=== PATIENT | female | born 1950 | race Caucasian/White ===

== ENCOUNTER 2019-03-30 11:02 | Emergency (ER) | payer MEDICARE ==
--- NOTE | 2019-03-30 12:16 | XRAY Report ---
Reason: fall Procedure Date: 03/30/2019 Accession Number: [id number] / [id number] Procedure: XR - Shoulder 3 View RT CPT Code: FULL RESULT: EXAM: RIGHT SHOULDER RADIOGRAPHY EXAM DATE: 03/30/2019 12:02 PM. CLINICAL HISTORY: Fall. COMPARISON: None. TECHNIQUE: 3 views. FINDINGS: Bones: There is a fracture of the osseous glenoid fossa. Joints: Anterior inferior dislocation of the glenohumeral articulation. The acromioclavicular interval may also be disrupted, limited evaluation due to positioning. Soft tissues: The visualized hemithorax is unremarkable. No soft tissue swelling. IMPRESSION: Glenohumeral dislocation with fracture at the glenoid fossa. Possible AC joint injury. RADIA The call report notification system was initiated by Dr. Fam Mora at 12:15 PM on 03/30/2019. The above call report findings were discussed with triage nurse Autumn by Dr. Fam Mora at 12:18 PM on 03/30/2019.
--- NOTE | 2019-03-30 13:55 | ED Physician Documentation ---
PD HPI UPPER EXT INJURY - Stated complaint Stated Complaint: RT SHOULDER INJ - Chief complaint Chief Complaint: Ext Problem - History obtained from History obtained from: Patient - History of Present Illness Location: Right, Shoulder Type of injury: Fall (she says slipped and fell, landed onto right shoulder. With pain on ROM. She hoped it was sprained and would improve, but continues to be unable to move shoulder without pain.) Where injury occurred: Home Timing - onset: How many days ago (2) Timing - duration: Days (2) Timing - details: Abrupt onset Improved by: Rest, Immobilization Worsened by: Moving, Palpating Associated symptoms: Numbness (little finger and ring finger since fall.). No: Weakness Contributing factors: No: Anticoagulated Similar symptoms before: Has not had sx before Recently seen: Not recently seen Review of Systems Constitutional: denies: Fever Nose: denies: Rhinorrhea / runny nose, Congestion Throat: denies: Sore throat Cardiac: denies: Chest pain / pressure Respiratory: denies: Cough GI: denies: Abdominal Pain, Nausea, Vomiting : denies: Hematuria Musculoskeletal: reports: Joint pain (just right shoulder). denies: Neck pain, Back pain PD PAST MEDICAL HISTORY - Past Medical History Cardiovascular: [place] Psych: Depression, Anxiety - Past Surgical History Past Surgical History: Yes /MANAGER SIGN: Hysterectomy HEENT: Tonsil/Adenoidectomy - Present Medications Home Medications: Ambulatory Orders Medication Instructions Recorded Confirmed Acyclovir 200 mg PO TID 11/30/14 02/15/15 Aspirin [Aspir-Low] 81 mg PO DAILY 11/30/14 02/15/15 Atorvastatin [Lipitor] 80 mg PO DAILY 11/30/14 02/15/15 Carvedilol 12.5 mg PO BID 11/30/14 02/15/15 Cholecalciferol (Vitamin D3) 1,000 unit PO DAILY 11/30/14 02/15/15 [Vitamin D3] Garlic 600 mg PO DAILY 11/30/14 02/15/15 Neha 550 mg PO TID 11/30/14 02/15/15 Lisinopril 10 mg PO DAILY 11/30/14 02/15/15 Multivitamin [Multi Vitamin Daily] 1 each PO DAILY 11/30/14 02/15/15 [place]-3 Fatty Acids/Fish Oil [Fish 1,200 mg PO DAILY 11/30/14 02/15/15 Oil 1,200 mg Softgel] Omeprazole 1 tab PO DAILY 11/30/14 02/15/15 Sertraline [Zoloft] 50 mg PO DAILY 11/30/14 02/15/15 Calcium Carb, Cit/Magnesium Ox 1,200 mg PO DAILY 02/15/15 02/15/15 [Calmag Thins Tablet] Hydrocodone/Acetaminophen [[place] 1 each PO Q6H PRN #15 tablet 03/30/19 5-325 Tablet] Naproxen 375 mg PO BID #20 tablet 03/30/19 - Allergies Allergies/Adverse Reactions: Allergies Allergy/AdvReac Type Severity Reaction Status Date / Time codeine [Codeine] Allergy Nausea Verified 03/30/19 11:27 tetracycline [Tetracycline] Allergy Rash Verified 03/30/19 11:27 - Social History Does the pt smoke?: Yes Smoking Status: Current every day smoker Does the pt drink ETOH?: Yes Does the pt have substance abuse?: Yes PD ED PE NORMAL - Vitals Vital signs reviewed: Yes - General General: Alert and oriented X 3, Well developed/nourished, Other (holding right shoulder guardedly. ) - HEENT HEENT: Atraumatic - Neck Neck: Supple, no meningeal sign, No bony TTP, No adenopathy - Cardiac Cardiac: RRR, No murmur - Respiratory Respiratory: Clear bilaterally, Other (no chestwall tenderness) - Abdomen Abdomen: Soft, Non tender - Back Back: No spinal TTP - Derm Derm: Normal color, Warm and dry - Extremities Extremities: Other (right shoulder with hollow defect below AC c/w dislocation. Less sensation to touch in little/ring fingers. No tenderness/deformity of the elbow. Wrist not tender. ) - Neuro Neuro: Alert and oriented X 3, No motor deficit, Normal speech Results - Vitals Vitals: Vital Signs - 24 hr 03/30/19 03/30/19 03/30/19 11:25 15:14 15:22 Temperature 369 C H Heart Rate 61 81 84 Respiratory 20 14 14 Rate Blood Pressure 126/97 H 155/94 H 155/94 H O2 Saturation 96 100 98 03/30/19 03/30/19 03/30/19 15:27 15:40 16:49 Temperature Heart Rate 88 97 93 Respiratory 17 15 18 Rate Blood Pressure 189/105 H 144/109 H O2 Saturation 98 94 03/30/19 03/30/19 03/30/19 16:51 17:00 18:10 Temperature Heart Rate 99 92 72 Respiratory 14 14 14 Rate Blood Pressure 115/92 H 115/90 H 110/70 O2 Saturation 99 97 98 Oxygen O2 Source Room air - Rads (name of study) right shoulder Radiology: Prelim report reviewed (dislocation shoulder, and glenoid fracture), EMP read contemporaneously, See rad report post reduction Radiology: Prelim report reviewed, EMP read contemporaneously (improved location), See rad report Procedures - Reduction Body part reduced: Right, Shoulder Fracture or dislocation: Fracture dislocation Anesthesia: Conscious sedation Shoulder reduction technique: [place] / ext rotation, Traction - counter tract Reduction aftercare: Unable to reduce (consulted Ortho, who will come and assist procedure.) - Procedural sedation Sedation prep: Informed consent, Time out completed, PE performed, AHA 2 - mild disease, IV O2 monitor, ET CO2 monitor, RT present Sedation medications: morphine, propofol Patient status during sedation: Responds to tactile, Vitals remained stable, Maintained airway, Recovered uneventfully Sedation recovery: Back to baseline PD MEDICAL DECISION MAKING - ED course Complexity details: reviewed results, re-evaluated patient (improved with reduction. No other apparent injury on re-exam. ), considered differential (Shoulder dislocation with glenoid fracture. Attempted reduction with sedation and I could not get it. Called Ortho, who came and did reduction while I did sedation. ), d/w patient Departure - Departure Disposition: 01 Home, Self Care Clinical Impression: Accidental fall Qualifiers: Encounter type: initial encounter Qualified Code(s): W19.XXXA - Unspecified fall, initial encounter Shoulder dislocation Qualifiers: Encounter type: initial encounter Laterality: right Qualified Code(s): S43.004A - Unspecified dislocation of right shoulder joint, initial encounter Glenoid fracture of shoulder Qualifiers: Encounter type: initial encounter Fracture type: closed Laterality: right Qualified Code(s): S42.141A - Displaced fracture of glenoid cavity of scapula, right shoulder, initial encounter for closed fracture Condition: Stable Record reviewed to determine appropriate education?: Yes Instructions: ED Dislocation Shoulder Redu, ED Fx Shoulder Follow-Up: Estevan Brar MD [Primary Care Provider] - Ilia Wills MD [Provider Admit Priv/Credential] - Prescriptions: Hydrocodone/Acetaminophen [[place] 5-325 Tablet] 1 each PO Q6H PRN #15 tablet PRN Reason: Pain Naproxen 375 mg PO BID #20 tablet Comments: Keep the sling on most of the time. You can have it off briefly for cleansing and changing clothes. No overhead reaching, push pole, lifting with the right arm. Use naproxen and anti-inflammatory twice daily with food. Add Tylenol or hydrocodone if needed for pain. Follow-up with Dr. Pleitez, orthopedics, in about a week, call tomorrow for an appointment. At that point he can reassess how your shoulder is doing regarding the ligaments and muscles and they want to follow the fracture to see if it healing well enough. Discharge Date/Time: 03/30/19 18:18
[2019-03-30] MEDS ORDERED: SODIUM CHLORIDE 0.9% 1,000 ML IV ONE (14:10)
[2019-03-30] MEDS ORDERED: diazePAM INJ 5 MG/ML SYRINGE IVP STA (14:10)
[2019-03-30] MEDS ORDERED: MORPHINE 2 MG/ML CARPUJECT IVP STA ×3 (14:10→16:13)
[2019-03-30] MEDS ORDERED: KETOROLAC 15 MG/ML VIAL IVP STA (14:10)
[2019-03-30] MEDS ORDERED: ONDANSETRON 4 MG/2 ML VIAL IVP STA (14:36)
[2019-03-30] MEDS ORDERED: PROPOFOL 200 MG/20 ML VIAL IVP STA ×2 (14:48→16:13)
--- NOTE | 2019-03-30 17:45 | XRAY Report ---
Reason: post procedure Procedure Date: 03/30/2019 Accession Number: [id number] / [id number] Procedure: XR - Shoulder 2 View RT CPT Code: FULL RESULT: EXAM: RIGHT SHOULDER RADIOGRAPHY EXAM DATE: 03/30/2019 05:17 PM. CLINICAL HISTORY: Shoulder dislocation. Post reduction. COMPARISON: SHOULDER 2 VIEW RT 03/30/2019 4:39 PM. TECHNIQUE: 2 views. FINDINGS: Bones: No acute fracture is demonstrated. Joints: There is satisfactory alignment at glenohumeral joint post reduction. Soft tissues: No abnormal soft tissue calcification. IMPRESSION: Satisfactory right shoulder alignment post reduction. [facility]
--- NOTE | 2019-03-30 17:47 | XRAY Report ---
Reason: post reduction Procedure Date: 03/30/2019 Accession Number: [id number] / [id number] Procedure: XR - Shoulder 2 View RT CPT Code: FULL RESULT: EXAM: RIGHT SHOULDER RADIOGRAPHY EXAM DATE: 03/30/2019 04:52 PM. CLINICAL HISTORY: Post reduction. COMPARISON: SHOULDER 3 VIEW RT 03/30/2019 11:52 AM. TECHNIQUE: 1 views. FINDINGS: Bones: There is lucency of the superior lateral proximal right humerus suspicious for Hill-Sachs deformity. Joints: There is anterior dislocation of the right humerus at the glenohumeral joint. Soft tissues: Negative for right pneumothorax. IMPRESSION: Anterior dislocation of the right shoulder. Probable Hill-Sachs deformity. RAD[facility]
[2019-03-30 18:19] VITALS: BP 110/70
--- NOTE | 2019-04-02 17:51 | CONSULTATION NOTE ---
DATE OF SERVICE: 03/30/2019 Physician: Ilia Wills MD CONSULTATION REQUESTED BY: Neville Bailey MD CONSULTING PHYSICIAN: Ilia Wills MD CHIEF COMPLAINT: I was asked to evaluate the patient for right shoulder glenohumeral dislocation and possible glenoid fracture, irreducible by initial attempt at closed reduction. HISTORY OF PRESENT ILLNESS: The patient is a 68-year-old female who sustained a fall 2-3 days ago, h ad an injury and pain on the right shoulder and was found to have a glenohumeral dislocation, failed reduction by the emergency medicine team. Orthopedic consultation was sought. The patient denies other traumatic complaints at this time, reports only right glenohumeral pain. De nies other significant right upper extremity complaints. She demonstrates radial, median, ulnar, mus culocutaneous motor and sensory function. She has weak firing of the deltoid, but has light toe-touc h sensation in the axillary distribution. Elbow, wrist and hand are generally unremarkable. She has palpable radial and ulnar pulses. ASSESSMENT AND PLAN: The patient is a 68-year-old female with approximately 2-3 day old anterior inf erior glenohumeral dislocation. We discussed closed reduction under conscious sedation. Please see dictation under separate cover. Risks, benefits and alternatives were reviewed. She verbalized unde rstanding of the above after having questions answered, verbalized wish to proceed with closed reduct ion. The patient was given post-reduction instructions. She will followup in the Orthopedic Clinic. She was given followup instructions. Potential need for additional treatment reviewed potentially for fu rther evaluation with imaging reviewed. Her questions answered to her understanding and satisfaction. IMAGING: The patient had right shoulder x-rays showing anterior inferior glenohumeral dislocation an d possible glenoid fracture, possible Hill-Sachs injury. TD: 04/02/2019 17:00
--- NOTE | 2019-04-02 18:24 | OPERATIVE REPORT ---
DATE OF SERVICE: 03/30/2019 Physician: Ilia Wills MD SURGEON: Ilia Wills MD PREOPERATIVE DIAGNOSIS: Right glenohumeral dislocation. POSTOPERATIVE DIAGNOSIS: Right glenohumeral dislocation. ANESTHESIA: Conscious sedation per Dr. Neville Bailey, Emergency Medicine Department. PROCEDURE: Right glenohumeral reduction under conscious sedation. ADDITIONAL DIAGNOSES: Possible glenoid and Hill-Sachs injuries. HISTORY OF PRESENT ILLNESS AND INDICATIONS: Please see consultation dictated under separate cover. In brief, patient is a 68-year-old female who sustained a fall and injury to her right shoulder. 2-3 days ago. She had pain, presented to the emergency department and had multiple reduction attempts p er Dr. Bailey. Patient was unable to have her shoulder reduced under conscious sedation and orthope dic consultation was sought. Patient was indicated for right shoulder closed reduction under conscio us sedation. We talked about risks, benefits, and alternatives. We talked about the potential risks including, but not limited to further injury, iatrogenic injury, worsening of her condition, failure to "cure" patient's problem, need for additional procedures, nerve or blood vessel injury, whether i t be partial, complete, permanent, or temporary. Talked about potential need for additional treatmen t of her shoulder as well as the fact that there are other risks not addressed here. She verbalized understanding of the above, questions answered, verbalized the wish to proceed. PROCEDURE NOTE: After conscious sedation is administered, following site identification of the right shoulder, patient has traction countertraction technique with a combination of good relaxation and a lso manual pressure on the humeral head, a palpable movement and reduction is noted. The range of mo tion of the glenohumeral joint improves and is noted to have appropriate anterior, posterior, inferio r translation approximately 2+. Post-reduction films are ordered. Patient was placed in a sling. Patient tolerated the procedure well. Patient is advised to follow up in the orthopedic clinic in 7 to 10 days for further evaluation. Postprocedure instructions given. TD: 04/02/2019 16:54
== END 2019-03-30 18:18 | disposition home or self-care (01) ==
LOC: ED 11:02
DX: S43.014A Anterior dislocation of right humerus, initial encounter (principal); S42.141A Displaced fracture of glenoid cavity of scapula, right shoulder, initial encounter for closed fracture; W01.0XXA Fall on same level from slipping, tripping and stumbling without subsequent striking against object, initial encounter; Y92.009 Unspecified place in unspecified non-institutional (private) residence as the place of occurrence of the external cause; F17.200 Nicotine dependence, unspecified, uncomplicated; Z79.82 Long term (current) use of aspirin
CPT/HCPCS: 23650; 94770; 96374; 96375; 96376; 99152; 99283; 99284

== ENCOUNTER 2019-04-20 07:58 | Outpatient (CLI) | payer MEDICARE ==
--- NOTE | 2019-04-20 14:08 | MRI Report ---
Reason: UNSPECIFIED DISLOCATION OF RIGHT SHOULDER JOINT,AGUILA Procedure Date: 04/20/2019 Accession Number: [id number] / [id number] Procedure: MRI - Shoulder RT W/O CPT Code: FULL RESULT: EXAM: RIGHT SHOULDER MRI WITHOUT CONTRAST EXAM DATE: 04/20/2019 09:13 AM. CLINICAL HISTORY: Unspecified dislocation of right shoulder joint. Shoulder pain. COMPARISON: None. TECHNIQUE: Multiplanar, multisequence T1-weighted and fluid-sensitive sequences of the shoulder without contrast. Other: Motion artifact. FINDINGS: Acromioclavicular Region: The acromion is type II. The acromioclavicular joint is unremarkable. The coracoacromial and coracoclavicular ligaments are intact. Small amount of bursal fluid is present. Glenohumeral Region: Superior subluxation of the humeral head with respect to the bony glenoid, there is pseudoarticulation with the undersurface of the acromion. Small joint effusion. Broad areas of grade III chondromalacia on both sides of the glenohumeral joint. The articular cartilage is unremarkable. The glenohumeral ligaments and joint capsule are unremarkable. Bone Marrow: No fracture, marrow edema or bone lesions. Labrum: Labrum is difficult to visualize because of motion, however, no discrete labral tears are noted. Musculature/Rotator Cuff: Longstanding full-thickness tears and proximal retraction of the supraspinatus, infraspinatus and subscapularis portions of rotator cuff. Teres minor attachment is tenuous but present. Extensive fatty atrophy of the subscapularis, supraspinatus and infraspinatus portions of the cuff. Biceps Tendon: Long head biceps tendon is not seen and is presumed torn and retracted distally. Other: None. IMPRESSION: 1. Type II unipartite undersurface osseous acromion shape. Small amount of bursal fluid is present. AC joint is unremarkable. 2. Superior subluxation of the humeral head with respect to the bony glenoid, pseudoarticulation with the undersurface of the acromion. Small joint effusion, broad areas of grade III chondromalacia on both sides of the joint. 3. Chronic longstanding full-thickness tears and proximal retraction with fatty atrophy involving the supraspinatus, infraspinatus and subscapularis portions of the cuff. Teres minor attachment is tenuous, there is edematous change in the muscle bundle. 4. Long head of biceps tendon is not seen and is presumed torn and retracted distally. RADIA
== END 2019-04-20 07:59 | disposition home or self-care (01) ==
LOC: DI 07:58
PROVIDERS: ATTEND Orthopaedic Surgery Sports Medicine
DX: S43.001A Unspecified subluxation of right shoulder joint, initial encounter (principal); M75.101 Unspecified rotator cuff tear or rupture of right shoulder, not specified as traumatic; M94.211 Chondromalacia, right shoulder

== ENCOUNTER 2020-08-03 12:14 | Outpatient (CLI) | payer MEDICARE ==
[2020-08-03 15:46] LABS: BASOPHILS % (AUTO) 0.5 %; EOSINOPHILS % (AUTO) 1.6 %; HGB - HEMOGLOBIN 13.4 g/dL (12.0-16.0); MEAN CORPUSCULAR HEMOGLOBIN 35.5 pg (27.0-31.0); MEAN CORPUSCULAR HGB CONC 33.8 g/dL (32.0-36.0); MEAN PLATELET VOLUME 13.2 fL (7.9-10.8); MONOCYTES % (AUTO) 8.9 %; NEUTROPHILS % (AUTO) 59.8 %; PLT - PLATELET COUNT 130 10^3/uL (130-450); RED BLOOD COUNT 3.77 10^6/uL (4.20-5.40); WHITE BLOOD COUNT 5.6 x10^3/uL (4.8-10.8)
[2020-08-03 15:49] LABS: ABNORMAL LYMPHS % (MANUAL) 0 %; BAND NEUTROPHILS % (MANUAL) 0 %
[2020-08-03 16:00] LABS: LYMPHOCYTES # (MANUAL) 1.3 10^3/uL (1.5-3.5); LYMPHOCYTES % (MANUAL) 23 %; MONOCYTES # (MANUAL) 0.3 10^3/uL (0.0-1.0)
[2020-08-03 16:01] LABS: DIFFERENTIAL COMMENT MANUAL DIFFERENTIAL; PLATELET ESTIMATE, MANUAL NORMAL (130-450,000) (NORMAL); PLATELET MORPHOLOGY NORMAL APPEARANCE (NORMAL); RBC MORPHOLOGY (MULTIPLE) 1+ MACROCYTOSIS (NORMAL)
== END 2020-08-03 12:15 | disposition home or self-care (01) ==
LOC: LAB.S 12:14
PROVIDERS: ATTEND Nurse Practitioner Family
DX: D75.89 Other specified diseases of blood and blood-forming organs (principal)
CPT/HCPCS: 36415; 85025

== ENCOUNTER 2020-08-26 08:00 | Outpatient (CLI) | payer MEDICARE ==
[2020-08-26 17:50] LABS: INR 4.4 (0.8-1.2); PT - PROTHROMBIN TIME 44.3 secs (9.9-12.6)
== END 2020-08-26 23:59 | disposition home or self-care (01) ==
LOC: LAB.S 08:00
PROVIDERS: ATTEND Family Medicine
DX: I48.91 Unspecified atrial fibrillation (principal)
CPT/HCPCS: 36415; 85610

== ENCOUNTER 2020-09-02 13:17 | Outpatient (CLI) | payer MEDICARE | END 2020-09-02 13:18 | disposition home or self-care (01) | LOC: LAB.S 13:17 | PROVIDERS: ATTEND Family Medicine | DX: I48.91 Unspecified atrial fibrillation (principal) | CPT/HCPCS: 85610 ==

== ENCOUNTER 2020-09-19 12:51 | Outpatient (CLI) | payer MEDICARE | END 2020-09-19 12:52 | disposition home or self-care (01) | LOC: LAB.S 12:51 | PROVIDERS: ATTEND Family Medicine | DX: I48.91 Unspecified atrial fibrillation (principal) | CPT/HCPCS: 85610 ==

== ENCOUNTER 2020-09-28 13:21 | Outpatient (CLI) | payer MEDICARE | END 2020-09-28 13:22 | disposition home or self-care (01) | LOC: LAB.S 13:21 | PROVIDERS: ATTEND Family Medicine | DX: Z53.9 Procedure and treatment not carried out, unspecified reason (principal) ==

== ENCOUNTER 2020-09-30 11:56 | Outpatient (CLI) | payer MEDICARE | END 2020-09-30 11:57 | disposition home or self-care (01) | LOC: LAB.S 11:56 | PROVIDERS: ATTEND Family Medicine | DX: I48.91 Unspecified atrial fibrillation (principal) | CPT/HCPCS: 85610 ==

== ENCOUNTER 2022-10-11 07:07 | Day surgery (SDC) | payer MEDICARE ==
[2022-10-11] MEDS ORDERED: LACTATED RINGERS 1,000 ML IV ONE ×2 (07:09→08:36)
[2022-10-11] MEDS ORDERED: KETOROLAC 0.45% OPHTH DROPS ONE (07:10)
[2022-10-11] MEDS ORDERED: PROPARACAINE 0.5% OPHTH DROPS 15 ML ONE (07:10)
[2022-10-11] MEDS ORDERED: CYCLOPENTOLATE 1% OPHTH DROPS 2 ML ONE (07:10)
[2022-10-11] MEDS ORDERED: PHENYLEPHRINE 2.5% OPHTH 2 ML DROPS ONE (07:10)
[2022-10-11] MEDS ORDERED: MIDAZOLAM 2 MG/2 ML VIAL ONE (08:16)
[2022-10-11] MEDS ORDERED: fentaNYL 100 MCG/2 ML VIAL ONE (08:16)
--- NOTE | 2022-10-11 08:22 | ANESTHESIA ---
Pre-Anesthesia VS, & Labs - Diagnosis L cataract - Procedure L PhacoIol Vital Signs: Temp Pulse Resp BP Pulse Ox O2 Flow Rate 36.9 C 88 18 125/82 H 98 0 10/11/22 07:26 10/11/22 07:26 10/11/22 07:26 10/11/22 07:26 10/11/22 07:26 10/11/22 07:26 Height: 5 ft 4 in Weight (kg): 85.5 kg Body Mass Index: 32.3 BMI Classification: Obese - NPO >8 hours - Is Patient ?: No Home Medications and Allergies Home Medications: Ambulatory Orders Mecobalamin [B12 Active] 1,000 mcg PO DAILY 09/26/22 Warfarin [Coumadin] 5 mg PO 1400 09/26/22 Atorvastatin [Lipitor] 80 mg PO DAILY 11/30/14 Carvedilol 6.25 mg PO BID 11/30/14 Cholecalciferol (Vitamin D3) [Vitamin D3] 1,000 unit PO DAILY 11/30/14 Multivitamin [Multi Vitamin Daily] 1 each PO DAILY 11/30/14 [place]-3 Fatty Acids/Fish Oil [Fish Oil 1,200 mg Softgel] 1,200 mg PO DAILY 11/30/14 Omeprazole 1 tab PO DAILY 11/30/14 Sertraline [Zoloft] 75 mg PO DAILY 11/30/14 Calcium Carb, Cit/Magnesium Ox [Calmag Thins Tablet] 1,200 mg PO DAILY 02/15/15 Mecobalamin [B12 Active] 1,000 mcg PO DAILY 09/26/22 Warfarin [Coumadin] 5 mg PO 1400 09/26/22 Allergies/Adverse Reactions: Allergies Allergy/AdvReac Type Severity Reaction Status Date / Time codeine [Codeine] Allergy Nausea Verified 03/30/19 11:27 tetracycline [Tetracycline] Allergy Rash Verified 03/30/19 11:27 Anes History & Medical History - Anesthetic History Anesthesia Complications: reports: No previous complications Family history of Anesthesia Complications: Denies Family history of Malignant Hyperthermia: Denies - Medical History Cardiovascular: reports: Hypertension, High cholesterol, [place], Atrial fibrillation Pulmonary: reports: None Gastrointestinal: reports: None Urinary: reports: None Musculoskeletal: reports: Other Endocrine/Autoimmune: reports: None Skin: reports: None Smoking Status: Current every day smoker Psychosocial: reports: Alcohol (PT REPORTS SHE DRANK 3 GLASSES OF WINE AND USED CANNABIS LAST NIGHT), Cannabis - Surgical History General: reports: Colonoscopy Eyes Ears Nose Throat (EENT): reports: Tonsil/Adenoidectomy Gynecologic: reports: Hysterectomy Exam General: Alert, Oriented x3 Dental: Dentures full Upper, Dentures full Lower Mouth Openin Fingerbreadth Neck Mobility: Normal Mallampati classification: I Thyromental Distance: 4-6 cm Respiratory: Lungs clear Cardiovascular: Regular rate Plan Anesthesia Type: MAC Consent for Procedure(s) Verified and Reviewed: Yes Code Status: Attempt Resuscitation ASA classification: 2-Mild systemic disease Is this case an emergency?: No
[2022-10-11] MEDS ORDERED: TIMOLOL 0.5% OPHTH DROPS OPTH ONE (08:24)
[2022-10-11] MEDS ORDERED: EPINEPHrine 1 MG/ML AMP IR ONE (08:24)
[2022-10-11] MEDS ORDERED: BRIMONIDINE 0.2% OPHTH DROPS 5 ML OPTH ONE (08:24)
[2022-10-11] MEDS ORDERED: BSS/LIDOCAINE/EPINEPHRINE 1 ML SYRINGE IO ONE (08:25)
[2022-10-11] MEDS ORDERED: PROPARACAINE 0.5% OPHTH DROPS 15 ML EACHEYE ONE (08:25)
[2022-10-11] MEDS ORDERED: TRIAMCIN/MOXIFLOX OPHTHALMIC 0.6 ML VIAL IO ONE ×2 (08:25→11:06)
[2022-10-11] MEDS ORDERED: VANCOMYCIN OPHTH (TOPICAL) 10 MG/ML SYRINGE TOP ONE (08:26)
--- NOTE | 2022-10-11 08:42 | OPERATIVE REPORT ---
Operative Report - Other Other Information/Narrative: Date of Surgery: 10/11/22 Preop Dx: Visually significant cataract left eye. This was the first cataract surgery. Postop Dx: Same Procedure: Phacoemulsification with posterior chamber intraocular lens implant left eye Surgeon: Dr. Royce Rankin Anesthesia: Monitored anesthesia care Complications: None Operative Indications: This is a 72-year-old F with progressive vision loss in the left eye due to 2+ nuclear sclerotic, 3+ cortical, and 1+ posterior subcapsular cataract. Best corrected visual acuity was 20/40 with glare to 20/160 vision in the left eye. Indications for surgery were: - Overall decrease in vision - Difficulty reading - Difficulty driving in low light or at night - Difficulty driving at night because of headlights from other vehicles The patient was consented at length concerning the risks and benefits of cataract surgery after which the patient expressed a desire to proceed with surgery. Operative Procedure: The patient was taken into OR#3 and placed under monitored anesthesia care. A surgical time-out was conducted confirming correct patient, correct procedure, and correct surgical site. The patient was given topical anesthesia and then prepped and draped in the usual sterile fashion. The eye was entered at the 6 and 3 oclock positions. Intracameral Shugarcaine was injected into the anterior chamber followed by a dispersive viscoelastic. A continuous-tear curvilinear capsulorhexis was performed. The nucleus was hydrodissected and phacoemulsified. The cortex was evacuated using automated infusion and aspiration. A cohesive viscoelastic was injected into the capsular bag and a 21.0 diopter intraocular lens was inserted into the bag. Infusion and aspiration were used to evacuate the viscoelastic materials from the eye. The wounds were hydrated and the eye inflated to physiologic pressure using balanced salt solution. Approximately 0.25ml of a mixture of triamcinolone and moxifloxacin was injected trans-sclerally into the vitreous in the inferotemporal quadrant using a 30 gauge cannula. An additional 0.55ml of a mixture of triamcinolone and moxifloxacin was injected subconjunctivally in the superior quadrant for infection and inflammation prophylaxis. Wound integrity was checked with Weck-Sapna sponges. The patient was taken from the operating room in good condition and given post-op instructions.
[2022-10-11 08:57] VITALS: BP 104/63
[2022-10-11] MEDS ORDERED: BSS/LIDOCAINE/EPINEPHRINE 1 ML VIAL ONE (11:06)
[2022-10-11] MEDS ORDERED: VANCOMYCIN OPHTH (TOPICAL) 10 MG/ML SYRINGE ONE (11:06)
[2022-10-11] MEDS ORDERED: BRIMONIDINE 0.2% OPHTH DROPS 5 ML ONE (11:06)
[2022-10-11] MEDS ORDERED: TIMOLOL 0.5% OPHTH DROPS ONE (11:06)
[2022-10-11] MEDS ORDERED: EPINEPHrine 1 MG/ML AMP ONE (11:06)
--- NOTE | 2022-10-11 13:57 | ANESTHESIA POST OP EVALUATION ---
Anesthesia Post Eval - Post Anesthesia Eval Vitals: Last Vital Signs Temp 36.9 C 10/11/22 08:56 Pulse 77 10/11/22 08:56 Resp 13 10/11/22 08:56 BP 104/63 10/11/22 08:56 Pulse Ox 92 10/11/22 08:56 O2 Flow Rate 0 10/11/22 07:26 CV Function Including HR & BP: Stable Pain Control: Satisfactory Nausea & Vomiting: Negative Mental Status: Baseline Respiratory Status: Airway Patent Hydration Status: Satisfactory Anesthesia Complications: None
== END 2022-10-11 07:08 | disposition home or self-care (01) ==
LOC: SDS 07:07
PROVIDERS: ATTEND Ophthalmology
DX: H25.812 Combined forms of age-related cataract, left eye (principal); I48.91 Unspecified atrial fibrillation; E66.9 Obesity, unspecified; Z68.32 Body mass index [BMI] 32.0-32.9, adult; Z79.01 Long term (current) use of anticoagulants
CPT/HCPCS: 66984; A9270; J3490; J7120

== ENCOUNTER 2022-11-22 08:29 | Day surgery (SDC) | payer MEDICARE ==
--- NOTE | 2022-11-22 07:43 | ANESTHESIA ---
Pre-Anesthesia VS, & Labs - Diagnosis R senile combined cataract - Procedure R extraction cataract w IOL Height: 5 ft 4 in - NPO >8 hours - Is Patient ?: No - Lab Results Lab results reviewed: Yes Home Medications and Allergies Atorvastatin [Lipitor] 80 mg PO DAILY 11/30/14 Carvedilol 6.25 mg PO BID 11/30/14 Cholecalciferol (Vitamin D3) [Vitamin D3] 1,000 unit PO DAILY 11/30/14 Multivitamin [Multi Vitamin Daily] 1 each PO DAILY 11/30/14 [place]-3 Fatty Acids/Fish Oil [Fish Oil 1,200 mg Softgel] 1,200 mg PO DAILY 11/30/14 Omeprazole 1 tab PO DAILY 11/30/14 Sertraline [Zoloft] 75 mg PO DAILY 11/30/14 Calcium Carb, Cit/Magnesium Ox [Calmag Thins Tablet] 1,200 mg PO DAILY 02/15/15 Mecobalamin [B12 Active] 1,000 mcg PO DAILY 09/26/22 Warfarin [Coumadin] 5 mg PO 1400 09/26/22 Allergies/Adverse Reactions: Allergies Allergy/AdvReac Type Severity Reaction Status Date / Time codeine [Codeine] Allergy Nausea Verified 03/30/19 11:27 tetracycline [Tetracycline] Allergy Rash Verified 03/30/19 11:27 Anes History & Medical History - Anesthetic History Anesthesia Complications: reports: No previous complications Family history of Anesthesia Complications: Denies Family history of Malignant Hyperthermia: Denies - Medical History Cardiovascular: reports: Hypertension, High cholesterol, [place], Atrial fibrillation Pulmonary: reports: None Gastrointestinal: reports: None Urinary: reports: None Musculoskeletal: reports: Other Endocrine/Autoimmune: reports: None Skin: reports: None Smoking Status: Current every day smoker - Surgical History General: reports: Colonoscopy Eyes Ears Nose Throat (EENT): reports: Cataracts, Tonsil/Adenoidectomy Gynecologic: reports: Hysterectomy Exam General: Alert, Oriented x3, Cooperative Dental: Dentures full Upper, Dentures full Lower Mouth Openin Fingerbreadth Neck Mobility: Normal Mallampati classification: II Respiratory: Lungs clear, Normal breath sounds, No respiratory distress Cardiovascular: Regular rate Neurological: Normal speech Mental/Cognitive Status: Alert/Oriented X3, Normal for patient Cognitive Status: Within normal limits Plan Anesthesia Type: MAC Consent for Procedure(s) Verified and Reviewed: Yes Code Status: Attempt Resuscitation ASA classification: 3-Severe systemic disease Is this case an emergency?: No
[~2022-11-22 08:29] MED LIST: CYCLOPENTOLATE 1% OPHTH DROPS 2 ML ONE; KETOROLAC 0.45% OPHTH DROPS ONE; PHENYLEPHRINE 2.5% OPHTH 2 ML DROPS ONE; PROPARACAINE 0.5% OPHTH DROPS 15 ML ONE
[2022-11-22] MEDS ORDERED: LACTATED RINGERS 1,000 ML IV ONE ×2 (09:03→09:59)
[2022-11-22] MEDS ORDERED: MIDAZOLAM 2 MG/2 ML VIAL ONE (09:15)
[2022-11-22] MEDS ORDERED: fentaNYL 100 MCG/2 ML VIAL ONE (09:17)
[2022-11-22] MEDS ORDERED: TRIAMCIN/MOXIFLOX OPHTHALMIC 0.6 ML VIAL IO ONE ×2 (09:18→09:48)
[2022-11-22] MEDS ORDERED: EPINEPHrine 1 MG/ML AMP ONE (09:18)
[2022-11-22] MEDS ORDERED: BRIMONIDINE 0.2% OPHTH DROPS 5 ML ONE (09:19)
[2022-11-22] MEDS ORDERED: TIMOLOL 0.5% OPHTH DROPS ONE (09:19)
[2022-11-22] MEDS ORDERED: BSS/LIDOCAINE/EPINEPHRINE 1 ML SYRINGE ONE (09:19)
[2022-11-22] MEDS ORDERED: VANCOMYCIN OPHTH (TOPICAL) 10 MG/ML SYRINGE ONE (09:19)
[2022-11-22] MEDS ORDERED: TIMOLOL 0.5% OPHTH DROPS OPTH ONE (09:48)
[2022-11-22] MEDS ORDERED: EPINEPHrine 1 MG/ML AMP IR ONE (09:48)
[2022-11-22] MEDS ORDERED: BSS/LIDOCAINE/EPINEPHRINE 1 ML SYRINGE IO ONE (09:48)
[2022-11-22] MEDS ORDERED: BRIMONIDINE 0.2% OPHTH DROPS 5 ML OPTH ONE (09:48)
[2022-11-22] MEDS ORDERED: VANCOMYCIN OPHTH (TOPICAL) 10 MG/ML SYRINGE TOP ONE (09:49)
[2022-11-22] MEDS ORDERED: PROPARACAINE 0.5% OPHTH DROPS 15 ML RIGHTEYE ONE (09:49)
--- NOTE | 2022-11-22 10:04 | ANESTHESIA POST OP EVALUATION ---
Anesthesia Post Eval - Post Anesthesia Eval Vitals: Last Vital Signs Temp 37.0 C 11/22/22 10:00 Pulse 74 11/22/22 10:00 Resp 14 11/22/22 10:00 BP 134/96 H 11/22/22 10:00 Pulse Ox 95 11/22/22 10:00 O2 Flow Rate 0 11/22/22 08:45 CV Function Including HR & BP: Stable Pain Control: Satisfactory Nausea & Vomiting: Negative Mental Status: Baseline Respiratory Status: Airway Patent Hydration Status: Satisfactory Anesthesia Complications: None
--- NOTE | 2022-11-22 10:11 | OPERATIVE REPORT ---
Operative Report - Other Other Information/Narrative: Date of Surgery: 11/22/22 Preop Dx: Visually significant cataract right eye. Cataract surgery was performed in the left eye on . Postop Dx: Same Procedure: Phacoemulsification with posterior chamber intraocular lens implant right eye Surgeon: Dr. Royce Rankin Anesthesia: Monitored anesthesia care Complications: None Operative Indications: This is a 72-year-old F with progressive vision loss in the right eye due to 3+ nuclear sclerotic, 3+ cortical, and 1+ posterior subcapsular cataract. Best corrected visual acuity was 20/40 with glare to 20/400 vision in the right eye. Indications for surgery were: - Difficulty seeing street signs - Difficulty driving in low light or at nights The patient was consented at length concerning the risks and benefits of cataract surgery after which the patient expressed a desire to proceed with surgery. Operative Procedure: The patient was taken into OR#3 and placed under monitored anesthesia care. A surgical time-out was conducted confirming correct patient, correct procedure, and correct surgical site. The patient was given topical anesthesia and then prepped and draped in the usual sterile fashion. The eye was entered at the 6 and 3 oclock positions. Intracameral Shugarcaine was injected into the anterior chamber followed by a dispersive viscoelastic. A continuous-tear curvilinear capsulorhexis was performed. The nucleus was hydrodissected and phacoemulsified. The cortex was evacuated using automated infusion and aspiration. A cohesive viscoelastic was injected into the capsular bag and a 20.5 diopter intraocular lens was inserted into the bag. Infusion and aspiration were used to evacuate the viscoelastic materials from the eye. The wounds were hydrated and the eye inflated to physiologic pressure using balanced salt solution. Approximately 0.25ml of a mixture of triamcinolone and moxifloxacin was injected trans-sclerally into the vitreous in the inferotemporal quadrant using a 30 gauge cannula. An additional 0.55ml of a mi xture of triamcinolone and moxifloxacin was injected subconjunctivally in the superior quadrant for infection and inflammation prophylaxis. Wound integrity was checked with Weck-Sapna sponges. The patient was taken from the operating room in good condition and given post-op instructions.
[2022-11-22 10:33] VITALS: BP 130/88
== END 2022-11-22 08:30 | disposition home or self-care (01) ==
LOC: SDS 08:29
PROVIDERS: ATTEND Ophthalmology
DX: H25.811 Combined forms of age-related cataract, right eye (principal); I25.2 Old myocardial infarction; I48.91 Unspecified atrial fibrillation; F17.200 Nicotine dependence, unspecified, uncomplicated; Z98.42 Cataract extraction status, left eye
CPT/HCPCS: 66984; A9270; J3490; J7120

== ENCOUNTER 2023-09-17 12:27 | Outpatient (CLI) | payer MEDICARE ==
--- NOTE | 2023-09-17 16:43 | CT Report ---
PROCEDURE: Low Dose Lung Cancer Screen INDICATIONS: EX SMOKER TECHNIQUE: A CT scan of the chest was performed. Intravenous contrast media was not administered. Images were re corded and evaluated at appropriate window settings. Reformats: axial MIP of the chest, coronal and s agittal. For radiation dose reduction, the following was used: automated exposure control, adjustment of mA and/or kV according to patient size. COMPARISON: None. FINDINGS: Image quality: Excellent. Lungs and pleura: No pleural effusions. No pneumothorax. A few scattered pulmonary nodules measuring 3 mm or less. For example a 3 mm nodule within the left lower lobe (3/181). Mediastinum: Heart size is enlarged. No pericardial effusion. Atherosclerotic vascular calcifications of the aorta and its branching vessels. Dilated main pulmonary artery, suggestive of pulmonary hyper tension.. No mediastinal adenopathy by size criteria. Moderate multivessel coronary calcifications. Large hiatal hernia. Chest wall and lower neck: Thyroid is unremarkable. No axillary or supraclavicular adenopathy by size . Bones: No aggressive osseous abnormality. Dextroscoliotic curvature of the thoracic spine and levosco liotic curvature of the upper lumbar spine. Multilevel degenerative changes of the spine. Upper Abdomen: Diverticulosis without evidence of diverticulitis the visualized colon. IMPRESSION: 1.Few scattered pulmonary nodules measuring 3 mm or less. 2.Cardiomegaly. Moderate multivessel coronary calcifications. 3.Dilated main pulmonary artery, suggestive of pulmonary hypertension. 4.Large hiatal hernia. 5.Degenerative changes of the spine with S-shaped scoliotic curvature. Lung RAD: 2 - Benign. Recommendation: Continue annual screening in 12 Months with LDCT Reviewed by: Wally Gonzales MD on 09/17/2023 4:42 PM PST Approved by: Wally Gonzales MD on 09/17/2023 4:42 PM PST Station ID: [id number]
== END 2023-09-17 12:28 | disposition home or self-care (01) ==
LOC: DI 12:27
PROVIDERS: ATTEND Nurse Practitioner Family
DX: Z12.2 Encounter for screening for malignant neoplasm of respiratory organs (principal); Z87.891 Personal history of nicotine dependence; R91.8 Other nonspecific abnormal finding of lung field; I51.7 Cardiomegaly; I25.10 Atherosclerotic heart disease of native coronary artery without angina pectoris; I28.1 Aneurysm of pulmonary artery; K44.9 Diaphragmatic hernia without obstruction or gangrene; M47.819 Spondylosis without myelopathy or radiculopathy, site unspecified

== ENCOUNTER 2023-10-24 12:55 | Outpatient (CLI) | payer MEDICARE ==
--- NOTE | 2023-10-24 14:59 | DEXA Report ---
PROCEDURE: Dexa Spine and/or Hip INDICATIONS: POST MENOPAUSAL TECHNIQUE: Dual energy x-ray absorptiometry (DXA) was performed on a [employer] System. Regions measur ed are the AP Spine, femoral neck, and if needed forearm. COMPARISON: None FINDINGS: Lumbar Spine: Bone Mineral Density 1.393 g/cm/cm,T score 1.8. Left Femoral Neck: Bone Mineral Density 0.804 g/cm/cm, T score -1.7. Left Hip: Bone Mineral Density 0.774 g/cm/cm,T score -1.9. (T score greater or equal to -1.0: NORMAL) (T score from -1.1 to -2.4: OSTEOPENIA) (T score less than or equal to -2.5 to: OSTEOPOROSIS) Impression: By WHO criteria, this patient has low bone density (osteopenia). Normal bone mineralization of the lumbar spine. Osteopenia of the hip. Patients with diagnosis of osteoporosis or osteopenia should have regular bone mineral density assess ment. For those eligible for Medicare, routine testing is allowed once every 2 years. Testing frequ ency can be increased for patients who have rapidly progressing disease or for those who are receivin g medical therapy to restore bone mass. Reviewed by: Francesca Decker MD on 10/24/2023 2:58 PM PST Approved by: Francesca Decker MD on 10/24/2023 2:58 PM PST Station ID: [id number]
== END 2023-10-24 12:56 | disposition home or self-care (01) ==
LOC: DI 12:55
PROVIDERS: ATTEND Nurse Practitioner Family
DX: Z78.0 Asymptomatic menopausal state (principal); M85.89 Other specified disorders of bone density and structure, multiple sites